=== PATIENT | male | born 1955 | race Caucasian/White ===

== ENCOUNTER → 2023-02-16 15:16 | Outpatient (BNVA) | payer MEDICARE, MEDICAID, SELFPAY | PROVIDERS: Visit Provider Physician Assistant | DX: Z47.89 Encounter for other orthopedic aftercare (principal); Z98.1 Arthrodesis status | CPT/HCPCS: 99212 ==

== ENCOUNTER 2023-03-30 09:47 | Outpatient (REF) | payer MEDICARE, MEDICAID, SELFPAY ==
--- NOTE | ~2023-03-30 | XR_ITS ---
EXAMINATION: XR LUMBOSACRAL SPINE CLINICAL INFORMATION: Arthrodesis status COMPARISON: None available. TECHNIQUE: 2 views FINDINGS: 5 nonrib-bearing lumbar vertebral bodies are visualized. There is minimal dextroscoliosis of the lumbar spine. Also noted is minimal retrolisthesis of L2 on L3. Lumbar vertebral body heights are maintained. Properly positioned disc spacer at the L5/S1 level. Other intravertebral disc spaces of the lumbar spine are relatively well-maintained. Tiny osteophytes are scattered round lumbar spine. Vascular calcifications noted. XR/XR lumbar spine 2-3V IMPRESSION: Postsurgical changes of the lower lumbar spine.
== END 2023-03-30 09:48 | disposition home or self-care (01) ==
LOC: HO.HOSX 09:47
PROVIDERS: Visit Provider Neurological Surgery
DX: Z98.1 Arthrodesis status (principal)
CPT/HCPCS: 72100; 99212

== ENCOUNTER 2023-06-30 16:59 | Outpatient (REF) | payer MEDICARE, MEDICAID, SELFPAY | END 2023-06-30 17:00 | disposition home or self-care (01) | LOC: HO.HOSX 16:59 | PROVIDERS: Visit Provider Neurological Surgery | DX: Z13.89 Encounter for screening for other disorder (principal) ==

== ENCOUNTER 2023-07-06 13:03 | Outpatient (AMB) | payer MEDICARE, MEDICAID, SELFPAY ==
--- NOTE | 2023-07-06 13:23 | A.SPINEOV_ITS ---
Intake Intake Visit Reasons: 3 month follow up Intake Note: Mr. Meyer is here today for his 3mo follow up. [facility] Director Required: No Assessment & Plan Assessment & Plan (1) Status post lumbar and lumbosacral fusion by anterior technique: Code(s): Z98.1 - Arthrodesis status Plan Dear Dr. Lock, On 07/06/2023, I saw for follow-up your patient Reji Meyer. He underwent an anterior lumbar interbody fusion L5-S1 approximately 5 months ago for back pain and bilateral lumbar radiculopathy. The radicular symptoms are mostly gone. His main complaint is a deep aching back pain that comes with standing or walking short distances. The back pain has been stable since the surgery. He is not taking any narcotics. He is requesting handicap sticker. Today's x-rays of the lumbar spine are stable compared to the prior x-rays in March. I would like to follow up in [address] of the lumbar spine to assess fusion. I hope you can provide him a handicap sticker if you think it is indicated. Se Hernandez MD, PhD Spine Fellowship Trained Neurosurgeon Director, [facility] Coding Level of Care Code Est Pt Level 2 (80423) Diagnoses Status post lumbar and lumbosacral fusion by anterior technique Z98.1
== END 2023-07-06 13:58 | disposition home or self-care (01) ==
PROVIDERS: Visit Provider Neurological Surgery
DX: Z98.1 Arthrodesis status (principal)
CPT/HCPCS: 99212

== ENCOUNTER 2023-07-06 13:10 | Outpatient (REF) | payer MEDICARE, SELFPAY ==
--- NOTE | ~2023-07-06 | XR_ITS ---
EXAMINATION: XR LUMBOSACRAL SPINE CLINICAL INFORMATION: Arthrodesis status COMPARISON: 03/30/2023. TECHNIQUE: 4 views of the lumbar spine inclusive of flexion and extension lateral views. FINDINGS: Mild dextroscoliosis of the lumbar spine. Disc spacer at L5-S1 remains in place. Mild multilevel lumbar spondylosis with mild loss of disc space height at L2-L3 and L3-L4. Redemonstration of minimal retrolisthesis of L2 on L3 which persists on flexion and extension. XR/XR lumbar spine 2-3V IMPRESSION: Disc spacer at L5-S1 redemonstrated. Hardware appears intact. Mild multilevel lumbar spondylosis with mild loss of disc space height at L2-L3 and L3-L4.
== END 2023-07-06 13:11 | disposition home or self-care (01) ==
LOC: HO.HOSX 13:10
PROVIDERS: Visit Provider Neurological Surgery
DX: Z98.1 Arthrodesis status (principal)
CPT/HCPCS: 72100; 99212

== ENCOUNTER 2024-01-10 12:47 | Outpatient (REF) | payer MEDICARE, SELFPAY ==
--- NOTE | ~2024-01-10 | CT_ITS ---
EXAMINATION: CT LUMBAR SPINE WITHOUT CONTRAST CLINICAL INFORMATION: 68-year-old with history of previous L5-S1 arthrodesis. Evaluate status. COMPARISON: 07/06/2023 x-rays. TECHNIQUE: Volumetric CT imaging of the lumbar spine was done with multiplanar reformatted reconstructions without IV contrast. This CT examination was performed using dose optimization techniques as appropriate, variously including the following: *Automated exposure control *Adjustment of mA and/or kV according to patient size (this includes techniques or standardized protocols for targeted exams where dose is matched to indication/reason for exam; i.e. extremities or head) *Use of iterative reconstruction technique DLP; 703 mGy-cm FINDINGS: ALIGNMENT: There is kbrq-nq-dfguhvmc upper lumbar dextrocurvature, convex to the right at L1-L2 stable in appearance. There is 2 mm of retrolisthesis at L2-L3 stable in appearance. There is otherwise normal lumbosacral alignment in the sagittal plane. LUMBOSACRAL JUNCTION: Normal. There are 5 ope-btf-gcxkbaz lumbar-type vertebral bodies. VERTEBRAL BODIES: There is mild chronic anterior wedging with mild loss of height of the anterior portion of the T12 vertebral body, asymmetric to the left, stable in appearance. Lumbar vertebral body heights are well maintained. There are no acute fractures. DISC SPACES AND ENDPLATES: Redemonstrated is a spacer device located in place within the L5-S1 intervertebral disc space, unchanged in position from the previous x-rays. Screws entering the L5 and S1 vertebral bodies are again noted, which appear intact without loosening. There is incomplete osseous fusion, with some degree of bridging bone traversing the intervertebral disc space within the interstices of the spacer device. There is intradiscal vacuum disc phenomenon within the residual intervertebral disc space on the right and to a lesser degree on the left. There is prominent anterior and paravertebral spondylosis similar to prior x-rays. There is oaws-il-qndbnxzx intervertebral disc space height loss asymmetric to the left at L2-L3 with anterior and paravertebral spondylosis. Spinal Levels: L5-S1: Metallic hardware artifact partially obscures soft tissue structures within the canal and neural foramina. There is moderate bilateral facet joint arthropathy. No significant canal stenosis. Posterolateral osteophytic ridging of the endplates is noted with myqcsqey-df-tdxcar bilateral neural foraminal stenosis. L4-L5: Concentric disc bulging is noted, with flattening of the ventral dural sac with a prominent dorsal fat pad. There is severe left-sided and wyiy-py-klczhrcw right-sided facet joint arthrosis with ligamentum flavum thickening. There is moderate to severe central spinal canal stenosis and there is crowding of the subarticular zones bilaterally likely encroaching on the traversing L5 nerve roots. There is moderate left-sided and mild right-sided neural foraminal stenosis. L3-L4: There is concentric disc bulging, with flattening of the ventral dural sac with a prominent dorsal fat pad. There is tyktqkaq-it-favveh left-sided and moderate right-sided facet joint arthrosis with ligamentum flavum thickening. There is moderate central spinal canal stenosis and there is crowding of the subarticular zones bilaterally likely encroaching on the traversing L4 nerve roots. Mild foraminal narrowing is noted on the right. L2-L3: Retrolisthesis, disc bulging and flattening of the ventral dural sac with a prominent dorsal fat pad and zbwmxjvk-kg-vnjpyf central spinal canal stenosis. Ogjr-le-fddgczia facet joint arthrosis left more than right with ligamentum flavum thickening. Crowding of the subarticular zones noted bilaterally likely encroaching on the traversing L3 nerve roots. Moderate bilateral neural foraminal stenosis noted. L1-L2: Minor annular bulging. Yugu-kf-morwzdbf facet joint arthrosis left more than right. No significant canal or neural foraminal stenosis. T12-L1: No significant disc bulge or herniation. Mqhr-jb-oiujuijq facet joint arthrosis right more than left. No significant canal or neural foraminal stenosis. T11-T12: Normal annular contour. Rgdljldc-rh-mrxiyf facet joint arthropathy right more than left. No canal stenosis. Cyummhqp-pc-epfrit right-sided neural foraminal stenosis is noted. PARAVERTEBRAL AND INCLUDED EXTRASPINAL SOFT TISSUES: The paravertebral soft tissues are unremarkable. CT/CT lumbar spine wo IV con IMPRESSION: 1. Status post L5-S1 spacer placement with incomplete osseous fusion across the intervertebral disc space as described above. The hardware appears intact without loosening. There is intradiscal vacuum disc phenomenon within the residual intervertebral disc space on the right and to lesser degree on the left. 2. Multilevel DDD, disc bulging, spondylosis and DJD with multilevel spinal canal and neural foraminal stenosis, as described above. Mild retrolisthesis at L2-L3 stable in appearance. Stable scoliotic curvature.
== END 2024-01-10 12:48 | disposition home or self-care (01) ==
LOC: HO.CT 12:47
PROVIDERS: Visit Provider Neurological Surgery
DX: Z98.1 Arthrodesis status (principal)
CPT/HCPCS: 72132

== ENCOUNTER 2024-01-21 13:03 | Outpatient (AMB) | payer MEDICARE, SELFPAY ==
--- NOTE | 2024-01-21 13:04 | A.SPINEOV_ITS ---
Intake Intake Visit Reasons: f/up CT results Intake Note: Mr. Meyer is F/u for CT Results Physician Neonatology Required: No Assessment & Plan Assessment & Plan (1) Status post lumbar and lumbosacral fusion by anterior technique: Code(s): Z98.1 - Arthrodesis status Plan Dayne is a pleasant 68-year-old male who comes in today for a follow-up after having L5-S1 ALIF completed by our service back at [facility]. He comes in today for his six-month follow-up to evaluate progress of fusion. Is instrumentation looks fantastic, and fusion has begun over the anterior portion of the vertebral bodies. He reports his symptoms have also begun to resolve as well, he no longer suffers from his right-sided shooting radiculopathy, and only has minor pains into his left posterior buttocks. Overall he continues to do very well, and was inquiring about what could potentially be done regarding his neck pain. I encouraged him to make a follow-up appointment with our office regarding this issue. He has been scheduled for Wednesday01/26/2024 at 14:00. We will complete an examination & potentially order imaging based on that examination. Total amount of time spent in this visit was 20 minutes in discussion of symptoms, CTimaging results and subsequent plan of care. Vahe Hernandez MD,PhD [facility] Coding Level of Care Code Tele Est Pt Level 3 (52066) Diagnoses Status post lumbar and lumbosacral fusion by anterior technique Z98.1
== END 2024-01-21 13:39 | disposition home or self-care (01) ==
LOC: HO.HNS 13:03
PROVIDERS: Visit Provider Physician Assistant
DX: Z98.1 Arthrodesis status (principal)
CPT/HCPCS: 99213

== ENCOUNTER → 2024-01-21 13:03 | Outpatient (BNVA) | payer MEDICARE, SELFPAY | PROVIDERS: Visit Provider Physician Assistant | DX: Z98.1 Arthrodesis status (principal) | CPT/HCPCS: 99212 ==